=== PATIENT | female | born 1945 | race Caucasian/White ===

== ENCOUNTER 2017-12-31 09:31 | Inpatient (IN) | payer OTHER ==
[2017-12-31] VITALS (7 sets, daily range): BP systolic 85–123; BP diastolic 47–69
[~2017-12-31] VITALS: Ht 162.6 cm; Wt 74.4 kg
[2017-12-31 10:17] LABS: BASO # 0.1 10*3/uL (0.0-0.1); BASO % 0.7 % (0.0-1.0); EOS # 0.1 10*3/uL (0.0-0.4); EOS % 0.7 % (1.0-4.0); HEMATOCRIT 38.8 % (37.0-47.0); HEMOGLOBIN 12.6 g/dl (12.0-16.0); LYMPH % 13.3 % (27.0-41.0); MEAN CELL VOLUME 90.9 fl (81.0-99.0); MEAN CORPUSCULAR HGB 29.5 pg (27.0-31.0); MEAN CORPUSCULAR HGB CONC 32.5 g/dl (33.0-37.0); MEAN PLATELET VOLUME 10.3 fl (9.6-12.3); MONO # 0.5 10*3/uL (0.1-1.0); MONO % 6.7 % (3.0-9.0); NEUT # 5.6 10*3/uL (2.3-7.9); NEUT % 78.5 % (47.0-73.0); PLATELET COUNT AUTOMATED 207 10*3/uL (130-400); RED BLOOD COUNT 4.27 10*6/uL (4.10-5.10); RED CELL DISTRI WIDTH 11.9 % (0-14.5); WHITE BLOOD COUNT 7.1 10*3/uL (4.8-10.8)
[2017-12-31 10:35] LABS: ALBUMIN 3.4 gm/dl (3.1-4.5); ALKALINE PHOSPHATASE 73 U/L (45-117); BUN 23 mg/dl (7-24); CHLORIDE 100 mmol/L (98-107); CREATININE 1.25 mg/dL (0.55-1.02); POTASSIUM 3.9 mmol/L (3.5-5.1); SGOT/AST 17 IU/L (3-35); SGPT/ALT 9 U/L (12-78); SODIUM 133 mmol/L (136-145)
[2017-12-31 10:37] LABS: TROPONIN I < 0.015 ng/ml (<0.045)
[2017-12-31 12:20] LABS: BILIRUBIN NEGATIVE (NEGATIVE); BLOOD TRACE-INTACT (NEGATIVE); CLARITY CLEAR (CLEAR); COLOR YELLOW (YELLOW); GLUCOSE NEGATIVE (NEGATIVE); KETONE NEGATIVE (NEGATIVE); LEUKO ESTERASE TRACE (NEGATIVE); NITRITE NEGATIVE (NEGATIVE); SPECIFIC GRAVITY 1.015 (1.005-1.030); UROBILINOGEN 0.2 E.U./dl (0.2-1.0)
[2017-12-31 12:32] LABS: BACTERIA 2+; RBC 0-2 rbc/hpf (0-2)
[2017-12-31] MEDS ORDERED: ASPIR LOW81 MG PO (13:49)
[2017-12-31] MEDS ORDERED: CALCIUM CARB500 MG PO (13:51)
[2017-12-31] MEDS ORDERED: LISINOPRIL5 MG PO (13:51)
[2017-12-31] MEDS ORDERED: SIMVASTATIN5 MG PO (13:52)
[2017-12-31] MEDS ORDERED: PROTONIX40 MG PO (13:52)
[2017-12-31] MEDS ORDERED: TRIAMTERENE & H1 CAP PO (13:53)
[2017-12-31] MEDS ORDERED: DONEPEZIL HYDROC5 M1 PO (14:07)
[2018-01-01] VITALS: BP 111/55
[2018-01-01 03:03] LABS: BASO # 0.1 10*3/uL (0.0-0.1); BASO % 0.9 % (0.0-1.0); EOS % 0.5 % (1.0-4.0); HEMATOCRIT 32.1 % (37.0-47.0); HEMOGLOBIN 10.6 g/dl (12.0-16.0); LYMPH # 1.3 10*3/uL (1.3-4.4); MEAN CELL VOLUME 90.9 fl (81.0-99.0); MEAN PLATELET VOLUME 10.1 fl (9.6-12.3); MONO # 0.5 10*3/uL (0.1-1.0); MONO % 9.2 % (3.0-9.0); NEUT # 3.6 10*3/uL (2.3-7.9); NEUT % 65.2 % (47.0-73.0); PLATELET COUNT AUTOMATED 184 10*3/uL (130-400); RED BLOOD COUNT 3.53 10*6/uL (4.10-5.10); WHITE BLOOD COUNT 5.5 10*3/uL (4.8-10.8)
[2018-01-01 03:10] LABS: ACT PARTIAL THROMBO TIME 22.3 SECONDS (20.8-31.5)
[2018-01-01 03:19] LABS: ALBUMIN 2.8 gm/dl (3.1-4.5); ALKALINE PHOSPHATASE 59 U/L (45-117); BUN 24 mg/dl (7-24); CHLORIDE 104 mmol/L (98-107); CREATININE 0.94 mg/dL (0.55-1.02); POTASSIUM 3.5 mmol/L (3.5-5.1); SGOT/AST 12 IU/L (3-35); SGPT/ALT 9 U/L (12-78); SODIUM 136 mmol/L (136-145); TOTAL PROTEIN 5.7 gm/dL (6.4-8.2)
[2018-01-01 03:27] LABS: FREE T4 1.13 ng/dl (0.76-1.46); PHOSPHOROUS 2.8 mg/dL (2.5-4.9); THYROID STIM HORMONE (HS) 1.2 uIU/ml (0.358-4.75)
[2018-01-01 03:42] LABS: VITAMIN D, 25-HYDROXY 24.8 ng/mL (30-100)
[2018-01-01 08:00] VITALS: BP 112/68; BP 98/52
[2018-01-01] MEDS ORDERED: VITAMIN D31000 UNIT PO (12:20)
== END 2018-01-01 13:52 | disposition home or self-care (01) | DRG 315 ==
LOC: ED 09:31 → EDHOLD 11:54 → 4E 11:54
PROVIDERS: Internal Medicine; Nurse Practitioner
DX: I95.9 Hypotension, unspecified (principal); E87.1 Hypo-osmolality and hyponatremia; E44.0 Moderate protein-calorie malnutrition; E67.8 Other specified hyperalimentation; E86.0 Dehydration; D64.9 Anemia, unspecified; F03.90 Unspecified dementia, unspecified severity, without behavioral disturbance, psychotic disturbance, mood disturbance, and anxiety; K21.9 Gastro-esophageal reflux disease without esophagitis; I10 Essential (primary) hypertension; E78.5 Hyperlipidemia, unspecified; E55.9 Vitamin D deficiency, unspecified; Z86.73 Personal history of transient ischemic attack (TIA), and cerebral infarction without residual deficits; Z68.27 Body mass index [BMI] 27.0-27.9, adult; Z79.82 Long term (current) use of aspirin; Z79.899 Other long term (current) drug therapy; Z87.891 Personal history of nicotine dependence; Z82.0 Family history of epilepsy and other diseases of the nervous system; Z82.49 Family history of ischemic heart disease and other diseases of the circulatory system

== ENCOUNTER → 2019-06-30 | Outpatient (CLI) | payer OTHER ==
[~2019-06-30] MED LIST: ASPIR LOW81 MG PO; CALCIUM CARB500 MG PO; DONEPEZIL HYDROC5 M1 PO; LISINOPRIL5 MG PO; PROTONIX40 MG PO; SIMVASTATIN5 MG PO; TRIAMTERENE & H1 CAP PO; VITAMIN D31000 UNIT PO
== END | disposition home or self-care (01) ==
LOC: CARD 01:54
DX: I35.1 Nonrheumatic aortic (valve) insufficiency (principal); M79.89 Other specified soft tissue disorders

== ENCOUNTER 2020-04-26 12:42 | Emergency (ER) | payer OTHER ==
[~2020-04-26] VITALS: Ht 160 cm; Wt 90.7 kg
[2020-04-26 13:47] LABS: BASO # 0.1 10*3/uL (0.0-0.1); BASO % 0.7 % (0.0-1.0); EOS # 0.1 10*3/uL (0.0-0.4); EOS % 0.9 % (1.0-4.0); HEMATOCRIT 44.4 % (37.0-47.0); LYMPH # 1.1 10*3/uL (1.3-4.4); LYMPH % 14.8 % (27.0-41.0); MEAN CELL VOLUME 95.9 fl (81.0-99.0); MEAN CORPUSCULAR HGB 30.9 pg (27.0-31.0); MEAN CORPUSCULAR HGB CONC 32.2 g/dl (33.0-37.0); MEAN PLATELET VOLUME 9.8 fl (9.6-12.3); MONO # 0.7 10*3/uL (0.1-1.0); MONO % 8.9 % (3.0-9.0); NEUT # 5.6 10*3/uL (2.3-7.9); NEUT % 74.4 % (47.0-73.0); PLATELET COUNT AUTOMATED 201 10*3/uL (130-400); RED BLOOD COUNT 4.63 10*6/uL (4.10-5.10); RED CELL DISTRI WIDTH 12.3 % (0-14.5); WHITE BLOOD COUNT 7.6 10*3/uL (4.8-10.8)
[2020-04-26 14:04] LABS: ALBUMIN 3.4 gm/dl (3.1-4.5); ALKALINE PHOSPHATASE 75 U/L (45-117); BUN 20 mg/dl (7-24); CHLORIDE 106 mmol/L (98-107); CREATININE 1.03 mg/dL (0.55-1.02); POTASSIUM 3.9 mmol/L (3.5-5.1); SGOT/AST 15 IU/L (3-35); SGPT/ALT 11 U/L (12-78); SODIUM 139 mmol/L (136-145)
== END 2020-04-26 15:42 | disposition home or self-care (01) ==
LOC: ED 12:42
PROVIDERS: Nurse Practitioner Family
DX: R60.0 Localized edema (principal); I10 Essential (primary) hypertension; K21.9 Gastro-esophageal reflux disease without esophagitis; Z79.899 Other long term (current) drug therapy; Z79.82 Long term (current) use of aspirin; Z87.891 Personal history of nicotine dependence

== ENCOUNTER → 2020-08-01 | Outpatient (CLI) | payer OTHER ==
[2020-08-01 11:10] LABS: BASO # 0.1 10*3/uL (0.0-0.1); BILIRUBIN Negative (Negative); BLOOD Negative (Negative); CLARITY Cloudy (Clear); COLOR Yellow (Yellow); EOS # 0.1 10*3/uL (0.0-0.4); EOS % 1.5 % (1.0-4.0); GLUCOSE Negative (Negative); HEMATOCRIT 43.2 % (37.0-47.0); KETONE Negative (Negative); LEUKO ESTERASE 2+ (Negative); LYMPH # 1.1 10*3/uL (1.3-4.4); LYMPH % 16.6 % (27.0-41.0); MEAN CELL VOLUME 96.9 fl (81.0-99.0); MEAN CORPUSCULAR HGB 30.9 pg (27.0-31.0); MEAN CORPUSCULAR HGB CONC 31.9 g/dl (33.0-37.0); MEAN PLATELET VOLUME 10.2 fl (9.6-12.3); MONO # 0.6 10*3/uL (0.1-1.0); MONO % 9.3 % (3.0-9.0); NEUT # 4.8 10*3/uL (2.3-7.9); NEUT % 71.3 % (47.0-73.0); NITRITE Negative (Negative); PH 6.5 (4.5-8.0); PLATELET COUNT AUTOMATED 193 10*3/uL (130-400); RED BLOOD COUNT 4.46 10*6/uL (4.10-5.10); RED CELL DISTRI WIDTH 12.4 % (0-14.5); RETICULOCYTE % 1.15 % (0.50-2.50); WHITE BLOOD COUNT 6.7 10*3/uL (4.8-10.8)
[2020-08-01 11:41] LABS: EPITHELIAL CELLS TNTC
[2020-08-01 11:54] LABS: ALBUMIN 3.2 gm/dl (3.1-4.5); BUN 17 mg/dl (7-24); CHLORIDE 108 mmol/L (98-107); CHOLESTEROL 128 mg/dL (<200); GAMMA GLUTAMYL TRANSPEPTIDASE 6 U/L (5-55); SODIUM 139 mmol/L (136-145); TRIGLYCERIDES 44 mg/dl (<150); VLDL CHOLESTEROL 9 mg/dL (6-40)
[2020-08-01 12:03] LABS: ALKALINE PHOSPHATASE 77 U/L (45-117); CPK 69 U/L (26-192); CREATININE 0.89 mg/dL (0.55-1.02); HDL CHOLESTEROL 58 mg/dl (40-60); IRON 89 ug/dL (50-170); LDL CHOLESTEROL 61 mg/dL (9-159); SGOT/AST 18 IU/L (3-35); SGPT/ALT 11 U/L (12-78); TOTAL IRON BINDING CAPACITY 300 ug/dl (250-450); TOTAL PROTEIN 6.8 gm/dL (6.4-8.2)
[2020-08-01 13:53] LABS: FERRITIN 16.8 ng/mL (10.0-291.0)
== END | disposition home or self-care (01) ==
LOC: LAB 10:37
PROVIDERS: ATTEND Family Medicine
DX: E55.9 Vitamin D deficiency, unspecified (principal); R79.89 Other specified abnormal findings of blood chemistry; R53.83 Other fatigue; E78.5 Hyperlipidemia, unspecified

== ENCOUNTER → 2021-08-08 | Outpatient (CLI) | payer MEDICARE ==
[2021-08-08 13:43] LABS: BASO # 0.1 10*3/uL (0.0-0.1); BASO % 0.9 % (0.0-1.0); EOS # 0.1 10*3/uL (0.0-0.4); EOS % 1.1 % (1.0-4.0); HEMATOCRIT 44.2 % (37.0-47.0); LYMPH # 1.2 10*3/uL (1.3-4.4); LYMPH % 18.2 % (27.0-41.0); MEAN CELL VOLUME 96.9 fl (81.0-99.0); MEAN CORPUSCULAR HGB 31.4 pg (27.0-31.0); MEAN CORPUSCULAR HGB CONC 32.4 g/dl (33.0-37.0); MEAN PLATELET VOLUME 10.6 fl (9.6-12.3); MONO # 0.6 10*3/uL (0.1-1.0); MONO % 9.9 % (3.0-9.0); NEUT # 4.4 10*3/uL (2.3-7.9); NEUT % 69.6 % (47.0-73.0); PLATELET COUNT AUTOMATED 211 10*3/uL (130-400); RED BLOOD COUNT 4.56 10*6/uL (4.10-5.10); RED CELL DISTRI WIDTH 12.2 % (0-14.5); RETICULOCYTE % 1.02 % (0.50-2.50); WHITE BLOOD COUNT 6.4 10*3/uL (4.8-10.8)
[2021-08-08 13:49] LABS: BILIRUBIN Negative (Negative); BLOOD Negative (Negative); CLARITY Clear (Clear); COLOR Yellow (Yellow); GLUCOSE Negative (Negative); KETONE Negative (Negative); LEUKO ESTERASE 3+ (Negative); NITRITE Negative (Negative); PH 5.5 (4.5-8.0); SPECIFIC GRAVITY 1.015 (1.001-1.030)
[2021-08-08 13:58] LABS: ALBUMIN 3.1 gm/dl (3.1-4.5); ALKALINE PHOSPHATASE 77 U/L (45-117); BUN 19 mg/dl (7-24); CHLORIDE 108 mmol/L (98-107); CHOLESTEROL 130 mg/dL (<200); CREATININE 0.83 mg/dL (0.55-1.02); IRON 93 ug/dL (50-170); LDL CHOLESTEROL 59 mg/dL (9-159); POTASSIUM 3.6 mmol/L (3.5-5.1); SGOT/AST 15 IU/L (3-35); SGPT/ALT 12 U/L (12-78); SODIUM 141 mmol/L (136-145); TOTAL IRON BINDING CAPACITY 281 ug/dl (250-450); TOTAL PROTEIN 6.7 gm/dL (6.4-8.2); TRIGLYCERIDES 91 mg/dl (<150)
[2021-08-08 14:05] LABS: CPK 46 U/L (26-192); GAMMA GLUTAMYL TRANSPEPTIDASE < 3 U/L (5-55)
[2021-08-08 14:37] LABS: VITAMIN D, 25-HYDROXY 44.1 ng/mL (30-100)
[2021-08-08 14:38] LABS: FERRITIN 22.3 ng/mL (10.0-291.0)
[2021-08-08 15:02] LABS: BACTERIA 1+; RBC 0-2 rbc/hpf (0-2)
== END | disposition home or self-care (01) ==
LOC: LAB 12:31
PROVIDERS: ATTEND Family Medicine
DX: R53.83 Other fatigue (principal); E78.5 Hyperlipidemia, unspecified; R79.89 Other specified abnormal findings of blood chemistry; E55.9 Vitamin D deficiency, unspecified

== ENCOUNTER 2022-06-25 16:18 | Emergency (ER) | payer MEDICARE ==
[~2022-06-25] VITALS: Ht 162.5 cm; Wt 63.5 kg
[2022-06-25] MEDS ORDERED: LISINOPRIL5 MG PO (18:12)
[2022-06-25 19:05] LABS: BASO # 0.1 10*3/uL (0.0-0.1); BASO % 0.7 % (0.0-1.0); EOS # 0.1 10*3/uL (0.0-0.4); EOS % 0.8 % (1.0-4.0); HEMATOCRIT 45.1 % (37.0-47.0); LYMPH # 1.2 10*3/uL (1.3-4.4); MEAN CELL VOLUME 97.6 fl (81.0-99.0); MEAN CORPUSCULAR HGB 31.6 pg (27.0-31.0); MEAN CORPUSCULAR HGB CONC 32.4 g/dl (33.0-37.0); MEAN PLATELET VOLUME 10.2 fl (9.6-12.3); MONO # 0.7 10*3/uL (0.1-1.0); MONO % 9.3 % (3.0-9.0); NEUT # 5.3 10*3/uL (2.3-7.9); NEUT % 71.9 % (47.0-73.0); PLATELET COUNT AUTOMATED 193 10*3/uL (130-400); RED BLOOD COUNT 4.62 10*6/uL (4.10-5.10); RED CELL DISTRI WIDTH 12.5 % (0-14.5); WHITE BLOOD COUNT 7.3 10*3/uL (4.8-10.8)
[2022-06-25 19:21] LABS: ALKALINE PHOSPHATASE 83 U/L (45-117); BUN 18 mg/dl (7-24); CHLORIDE 107 mmol/L (98-107); CREATININE 0.86 mg/dL (0.55-1.02); LIPASE 137 U/L (73-393); POTASSIUM 3.7 mmol/L (3.5-5.1); SGOT/AST 18 IU/L (3-35); SGPT/ALT 12 U/L (12-78); SODIUM 140 mmol/L (136-145); TOTAL PROTEIN 7.3 gm/dL (6.4-8.2)
[2022-06-25 19:35] LABS: BILIRUBIN Negative (Negative); BLOOD 2+ (Negative); CLARITY Clear (Clear); COLOR Yellow (Yellow); GLUCOSE Negative (Negative); KETONE Negative (Negative); LEUKO ESTERASE Trace (Negative); NITRITE Negative (Negative); PH 6.5 (4.5-8.0); SPECIFIC GRAVITY 1.015 (1.001-1.030)
[2022-06-25 19:48] LABS: BACTERIA 1+
[2022-06-25] MEDS ORDERED: CIPRO500 MG PO (20:15)
== END 2022-06-25 21:50 | disposition home or self-care (01) ==
LOC: ED 16:18
PROVIDERS: Family Medicine
DX: N39.0 Urinary tract infection, site not specified (principal); Z79.899 Other long term (current) drug therapy; Z79.82 Long term (current) use of aspirin; Z87.891 Personal history of nicotine dependence